=== PATIENT | male | born 1995 | race Caucasian/White ===

== ENCOUNTER 2016-10-27 14:17 | Emergency (ER) | payer OTHER ==
[2016-10-27] MEDS ORDERED: OXYCODONE-ACETAMINOPHEN 5-325 MG TABLET PO ONE (14:57)
[2016-10-27] MEDS ORDERED: CEPHALEXIN 500 MG CAPSULE PO ONE (14:57)
[2016-10-27] MEDS ORDERED: SULFAMETHOXAZOLE/TRIMETHOPRIM 800-160 MG TABLET PO ONE (14:58)
--- NOTE | 2016-10-27 16:24 | ER Document Report ---
ED Skin Rash/Insect Bite/Abscs - General Chief Complaint: Abscess Stated Complaint: ABSCESS ON NECK Time Seen by Provider: 10/27/16 14:52 Notes: cyst on neck for years but now painful with antony drainage for the past 3-4 days. no fevers or chills. no h/o MRSA. 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 IN LAST 30 DAYS: No - Related Data Allergies/Adverse Reactions: No Known Allergies Allergy (Unverified 10/27/16 14:25) Past Medical History - Social History Smoking Status: Never Smoker Chew tobacco use (# tins/day): No Frequency of alcohol use: None Drug Abuse: None Family History: Reviewed & Not Pertinent Renal/ Medical History: Denies: Hx Peritoneal Dialysis Surgical Hx: Negative - Immunizations Hx Diphtheria, Pertussis, Tetanus Vaccination: Yes Review of Systems - Review of Systems Constitutional: No symptoms reported EENT: See HPI Skin: See HPI -: Yes All other systems reviewed and negative Physical Exam - Vital signs Vitals: Temp Pulse Resp BP Pulse Ox 97.7 F 65 16 143/80 H 100 10/27/16 14:23 10/27/16 14:23 10/27/16 14:23 10/27/16 14:23 10/27/16 14:23 - General General appearance: Appears well, Alert In distress: None - HEENT Pharynx: Normal Neck: Normal - Skin Location of irregularity: Neck - left lower Character of irregularity: Other - erythematous cyst measuring 3cm in diameter, tender to touch Course - Re-evaluation Re-evalutation: 10/27/16 20:34 Patient is a 21-year-old male who presents with an inflamed cyst. I indeed the bedside for approximately 6 cc of purulent material. The contents. Wound culture sent. Patient will be initiated on antibiotics. Patient given [place] - Vital Signs Vital signs: Temp Pulse Resp BP Pulse Ox 98 F 67 16 137/71 H 99 10/27/16 16:33 10/27/16 16:33 10/27/16 16:33 10/27/16 16:33 10/27/16 16:33 Procedures - Incision and Drainage Neck Type: Simple Anesthetic type: 1% Lidocaine mL's of anesthetic: 3 Blade size: 11 I&D procedure: Betadine prep applied Incision Method: Incision made by scalpel Amount/type of drainage: 6 cc of purulent material and cystic contents Adult Head Front/Back picture: 1 - cyst Discharge - Discharge Clinical Impression: Cyst Condition: Good Disposition: HOME, SELF-CARE Instructions: Abscess ([facility]), Cephalexin ([facility]), MRSA Cellulitis ([facility]), Post Incision and Drainage, Trimethoprim-Sulfa ([facility]) Additional Instructions: Follow up with primary care in 3-5 days Regarding your neck icthing, you can use Clotrimazole which is available over the counter Prescriptions: Cephalexin Monohydrate [Keflex 500 mg Capsule] 500 mg PO QID #20 capsule Sulfamethoxazole/Trimethoprim [Bactrim Ds Tablet] 1 each PO BID #10 tablet Forms: Elevated Blood Pressure
[2016-10-27 16:35] VITALS: BP 137/71
== END 2016-10-27 16:33 | disposition home or self-care (01) ==
LOC: ER 14:17
PROC: 0H94XZZ Drainage of Neck Skin, External Approach (ICD-10-PCS; principal; 2016-10-27)
DX: L02.11 Cutaneous abscess of neck (principal)
CPT/HCPCS: 87070; 87075; 87077; 87205; 99283